=== PATIENT | male | born 1980 | race Caucasian/White ===

== ENCOUNTER 2017-04-08 17:29 | Emergency (ER) | END 2017-04-08 20:36 | disposition home or self-care (01) | DX: S62.111A Displaced fracture of triquetrum [cuneiform] bone, right wrist, initial encounter for closed fracture (principal); S83.91XA Sprain of unspecified site of right knee, initial encounter; S63.501A Unspecified sprain of right wrist, initial encounter; S33.5XXA Sprain of ligaments of lumbar spine, initial encounter; F07.81 Postconcussional syndrome; G44.309 Post-traumatic headache, unspecified, not intractable; R07.9 Chest pain, unspecified; W18.39XA Other fall on same level, initial encounter; Y92.9 Unspecified place or not applicable | CPT/HCPCS: 70450; 70486; 71010; 72125; 73110; 73564; 90471; 90715; 96372; J2270; Z7502 ==